=== PATIENT | male | born 1955 | race Hispanic/Latino ===

== ENCOUNTER 2017-10-27 12:54 | Emergency (ER) | payer BC, OTHER ==
[2017-10-27] MEDS ORDERED: DEXAMETHASONE SOD PHOSPHATE 10MG/ML 1ML VIAL ONE ×2 (13:40→13:50)
[2017-10-27] MEDS ORDERED: ACETAMINOPHEN EXTRA STRENGTH 500 MG TABLET ONE ×2 (13:41→13:51)
[2017-10-27] MEDS ORDERED: KETOROLAC TROMETHAMINE 30MG/ML ONE ×2 (13:41→13:51)
[2017-10-27] MEDS ORDERED: IPRATROPIUM/ALBUTEROL SULFATE 3 ML SOLUTION IH ONE (13:49)
[2017-10-27 13:57] LABS: RAPID GROUP A STREP NEGATIVE (NEGATIVE)
== END 2017-10-27 14:50 | disposition home or self-care (01) ==
LOC: EDH 12:54
DX: J20.9 Acute bronchitis, unspecified (principal); I10 Essential (primary) hypertension; Z88.8 Allergy status to other drugs, medicaments and biological substances; Z98.890 Other specified postprocedural states
CPT/HCPCS: 71046; 87804 ×2; 87880; 94640; 96372 ×2; 99285; J1100 ×2; J1885 ×2

== ENCOUNTER 2023-04-16 14:30 | Emergency (ER) | payer BC ==
[~2023-04-16] VITALS: Ht 172.7 cm; Wt 131.5 kg
[2023-04-16] MEDS ORDERED: LACTATED RINGERS 1000ML 1,000 ML IV ONE (16:30)
[2023-04-16 17:01] LABS: BASOPHILS # (AUTO) 0.07 K/uL (0.00-0.20); BASOPHILS % (AUTO) 0.8 % (0.0-5.0); EOSINOPHILS # (AUTO) 0.15 K/uL (0.00-0.70); EOSINOPHILS % (AUTO) 1.7 % (0.0-8.0); HEMATOCRIT 45.8 % (42-54); IMMATURE GRANULOCYTE ABSOLUTE 0.02 K/uL (0-1); LYMPHOCYTES # (AUTO) 2.6 K/uL (1.0-4.8); LYMPHOCYTES % (AUTO) 28.9 % (21.0-51.0); MEAN CORPUSCULAR HEMOGLOBIN 30.7 pg (27.0-33.0); MEAN CORPUSCULAR HGB CONC 34.1 g/dL (32.0-36.0); MEAN CORPUSCULAR VOLUME 90.2 fL (79-99); MONOCYTES # (AUTO) 0.9 K/uL (0.1-1.0); MONOCYTES % (AUTO) 9.6 % (3.0-13.0); NEUTROPHILS # (AUTO) 5.3 K/uL (1.8-7.7); NEUTROPHILS % (AUTO) 58.8 % (40.0-77.0); PLATELET COUNT (AUTO) 241 K/uL (130-400); RED BLOOD CELL COUNT(AUTO) 5.08 MIL/uL (4.50-6.20); RED CELL DISTRIBUTION WIDTH 12.2 % (11.0-15.5); WHITE BLOOD COUNT (AUTO) 9.1 K/uL (4.8-10.8)
[2023-04-16 17:14] LABS: APPEARANCE,URINE CLEAR (CLEAR); BILIRUBIN,URINE NEGATIVE (NEGATIVE); COLOR,URINE YELLOW (YELLOW); GLUCOSE, URINE (UA) 50 mg/dL (NEGATIVE); KETONES,URINE NEGATIVE (NEGATIVE); LEUKOCYTE ESTERASE ,URINE NEGATIVE Leu/uL (NEGATIVE); NITRATE,URINE NEGATIVE (NEGATIVE); OCCULT BLOOD,URINE MODERATE (NEGATIVE); PH,URINE 5.5 (5.0-8.0); PROTEIN,URINE 20 mg/dL (NEGATIVE); UROBILINOGEN,URINE 3 mg/dL (0.2-1.0)
[2023-04-16 17:18] LABS: ADD UA MICROSCOPIC YES
[2023-04-16 17:19] LABS: ALBUMIN 3.9 g/dL (3.5-5.0); BILIRUBIN,TOTAL 0.7 mg/dL (0.2-1.0); CREATININE 1.1 mg/dL (0.5-1.5); POTASSIUM 3.6 mmol/L (3.5-5.1); TOTAL PROTEIN, SERUM 7.4 g/dL (6.0-8.3)
[2023-04-16 17:23] LABS: BACTERIA,URINE RARE /HPF (None Seen); MUCUS,URINE FEW LPF (None Seen); SQUAMOUS EPITHELIAL CELL,UR RARE /HPF (0-2)
[2023-04-16] MEDS ORDERED: IOHEXOL 350 MG/ML 100ML INFUS..BTL IV ONE (19:46)
[2023-04-16] MEDS ORDERED: MORPHINE 2 MG SYG IVP ONE (21:00)
[2023-04-16] MEDS ORDERED: ONDANSETRON 4MG INJ IVP ONE (21:00)
[2023-04-16] MEDS ORDERED: CEFTRIAXONE 1G VIAL ONE (21:29)
[2023-04-16] MEDS ORDERED: CEFTRIAXONE 1G VIAL IVPB ONE (21:30)
[2023-04-16] MEDS ORDERED: CIPR-278 PO (21:42)
[2023-04-16] MEDS ORDERED: ONDA4TAB10 PO (21:42)
[2023-04-16 22:19] VITALS: BP 162/78; PULSE 68; RESP 18; O2SAT 98
== END 2023-04-16 22:30 | disposition home or self-care (01) ==
LOC: EDH 14:30
DX: N11.9 Chronic tubulo-interstitial nephritis, unspecified (principal); N13.30 Unspecified hydronephrosis; I10 Essential (primary) hypertension
CPT/HCPCS: 99284; 74177; 96374; 96375; 96361; 80053; 83690; 85025; 81001; 36415; J7120; J2270 ×2; J0696; J2405 ×2; Q9967

== ENCOUNTER 2024-08-13 12:56 | Emergency (ER) | payer BC, MEDICARE ==
[~2024-08-13] VITALS: Ht 175.3 cm; Wt 117.9 kg
[~2024-08-13 12:56] MED LIST: LATA2.5D14 OP
--- NOTE | 2024-08-13 13:16 | EKG ---
[facility] Test Date: 2024-08-13 Test Time: 13:10:57 Pat Name: KENJI FATIMA Department: ED Room: Gender: M [employer]: [facility] : 1955 Requested By: PIERO FLEMING Order Number: [id number] Reading MD: Alexandre Merritt Measurements Intervals [place] Rate: 97 P: 69 MD: 211 QRS: -20 QRSD: 106 T: 76 QT: 359 QTc: 456 Interpretive Statements Sinus rhythm Borderline prolonged MD interval Probable left ventricular hypertrophy Inferior infarct, old No previous ECG available for comparison Electronically Signed On 08-13-2024 20:50:49 BANK SE[employer] ACT OFFICER by Alexandre Merritt Please click the below link to view image of tracing.
--- NOTE | 2024-08-13 13:19 | ERN ---
General Chief Complaint: Fever Stated Complaint: FEVER Time Seen by MD: 13:04 History of Present Illness Initial Comments 69-year-old male who presents for fever. According to patient has had a cough for about two weeks with viral URI type symptoms. About 48 hours ago he began vomiting. He developed a fever today. He has had a decreased appetite. He has had a mild cough. No sore throat or earache. No diarrhea no abdominal discomfort. He does have a history of a left knee replacement that was complicated by a septic joint. Currently he does have some body aches and some left knee pain but he is ambulatory and able to bear weight and there is no erythema or irritation Medical history: Hypertension Surgical history: Left knee replacement by Dr. Arvizu PCP: Loli Bell Allergies: Coded Allergies: hydrochlorothiazide (Unverified Allergy, Severe, HIVES, 09/15/23) Home Meds Active Scripts Cefpodoxime Proxetil (Cefpodoxime Proxetil) 200 Mg Tablet, 200 MG PO BID for 10 Days, #20 TAB Prov:PIERO FLEMING DO 08/13/24 Reported Medications Latanoprost (Latanoprost) 0.005 % Drops, 2.5 ML OP HS, DROP 09/14/23 Past Medical History Past Medical History: Hypertension Past Surgical History: Other, None Surgical History Other: LEFT KNEE Social History Social History: ETOH ROS Dictation CONSTITUTIONAL: Fever HEAD/FACE: No signs of trauma. EENT: No eye pain, no blurred vision, no tearing, no double vision, no ear pain, no ear discharge, no nose pain, no nasal congestion, no throat pain, no throat swelling, no mouth pain. RESPIRATORY: Cough congestion CARDIOVASCULAR: No chest pain, no edema, no palpitations, no syncope. GASTROINTESTINAL/ABDOMINAL: No abdominal pain, no constipation, no diarrhea, no nausea, no vomiting. GENITOURINARY: No abnormal discharge, no dysuria, no frequent urination, no hematuria. No complaints of pain in the genitals. MUSCULOSKELETAL: No back pain, no gout, no joint pain, no joint swelling, no muscle pain, no muscle stiffness, no neck pain. INTEGUMENTARY: No change in color, no change in hair/nails, no dryness, no lesion, no lumps, no rash. NEUROLOGICAL/PSYCH: No anxiety, not depressed, no emotional problem, no headache, no numbness, no pre-existing deficit, no history of seizures, no tremors, no weakness. HEMATOLOGIC/LYMPHATIC: Not anemic, no history of blood clots, no apparent bleeding, no bruising, glands not swollen. All Systems Negative, Except as Noted. Physical Exam Physical Exam Dictation VITAL SIGNS: Reviewed. GENERAL APPEARANCE: Alert, oriented x3, no acute distress, obese. HEAD AND FACE: Non-traumatic. EYES: PERRL, pink conjunctivas, eyelid no trauma, anterior chamber clear. EARS: Pinnas intact and no signs of trauma or erythema. Ear canals clear and no discharge. TMs no erythema. NOSE: No discharge, no bleeding. OROPHARYNX: Mouth normal, teeth no caries, tongue pink. Pharynx clear, no erythema. Tonsils no exudates, no abscesses noted. Mucous membrane moist. NECK: Supple, non-tender, no thyromegaly, no masses, no JVD, no bruits. BREAST: Deferred. CHEST: No tenderness, no crepitus, no paradoxical movement, no retractions. LUNGS: Clear, well-ventilated, symmetric, no rales, no wheezing, no rhonchi, no stridor, good breath sounds bilaterally. HEART: Regular rate, regular rhythm, no murmur, no gallops. VASCULAR: No peripheral edema. ABDOMEN: Soft, positive bowel sounds, nondistended, no guarding, nontender, no rebound, no masses no hepatomegaly, no splenomegaly, no Thakur's sign, no hernias. RECTAL: Deferred. GENITAL: Deferred. NEUROLOGICAL: Normal speech, gross motor function intact, gross sensory function intact. MUSCULOSKELETAL: Neck nontender, full range of motion, back nontender, full range of motion. EXTREMITIES: Nontender, full range of motion. SKIN: Color pink, dry, no turgor, no rash, no lacerations, no abrasions, no contusions. LYMPHATICS: Deferred. Results Laboratory and Microbiology Lab and Micro Result Laboratory Tests Test 08/13/24 13:13 08/13/24 13:34 08/13/24 14:11 Influenza Type A Antigen Negative For Type A Influenza Type B Antigen Negative For Type B SARS-CoV-2 Antigen (Rapid) PRESUMPTIVE NEGATIVE White Blood Count 7.1 K/uL (4.8-10.8) Red Blood Count 3.92 MIL/uL (4.50-6.20) L Hemoglobin 10.8 g/dL (14.0-18.0) L Hematocrit 32.7 % (42-54) L Mean Corpuscular Volume 83.4 fL (79-99) Mean Corpuscular Hemoglobin 27.6 pg (27.0-33.0) Mean Corpuscular Hemoglobin Concent 33.0 g/dL (32.0-36.0) Red Cell Distribution Width 12.4 % (11.0-15.5) Platelet Count 236 K/uL (130-400) Mean Platelet Volume 10.2 fL (7.5-10.5) Immature Granulocyte % (Auto) 1.1 % (0-1) H Neutrophils (%) (Auto) 74.0 % (40.0-77.0) Lymphocytes (%) (Auto) 15.4 % (21.0-51.0) L Monocytes (%) (Auto) 7.7 % (3.0-13.0) Eosinophils (%) (Auto) 0.4 % (0.0-8.0) Basophils (%) (Auto) 1.4 % (0.0-5.0) Neutrophils # (Auto) 5.3 K/uL (1.8-7.7) Lymphocytes # (Auto) 1.1 K/uL (1.0-4.8) Monocytes # (Auto) 0.6 K/uL (0.1-1.0) Eosinophils # (Auto) 0.03 K/uL (0.00-0.70) Basophils # (Auto) 0.10 K/uL (0.00-0.20) Absolute Immature Granulocyte (auto 0.08 K/uL (0-1) Nucleated Red Blood Cells 0.0 % (0.0-0.19) Erythrocyte Sedimentation Rate 25 MM/HR (0-20) H Sodium Level 135 mmol/L (136-145) L Potassium Level 3.3 mmol/L (3.5-5.1) L Chloride Level 101 mmol/L (101-111) Carbon Dioxide Level 29 mmol/L (21-32) Blood Urea Nitrogen 17 mg/dL (7-18) Creatinine 1.1 mg/dL (0.5-1.3) Glomerular Filtration Rate Calc 72 mL/min (>90) Random Glucose 103 mg/dL (70-105) Lactic Acid Level 1.5 mmol/L (0.8-2.5) Total Calcium 8.3 mg/dL (8.5-10.1) L Total Bilirubin 1.3 mg/dL (0.2-1.0) H Direct Bilirubin 0.3 mg/dL (0.0-0.3) Aspartate Amino Transf (AST/SGOT) 15 U/L (10-37) Alanine Aminotransferase (ALT/SGPT) 17 U/L (12-78) Alkaline Phosphatase 77 U/L (50-136) Total Creatine Kinase 184 U/L (21-232) Troponin I High Sensitivity 24 ng/L (4-75) C-Reactive Protein, Quantitative 88.60 mg/L (0.5-3.0) H B-Type Natriuretic Peptide 453 pg/mL (0-100) H Total Protein 6.3 g/dL (6.0-8.3) Albumin 3.1 g/dL (3.5-5.0) L Urine Color YELLOW (YELLOW) Urine Appearance CLEAR (CLEAR) Urine pH 6.0 (5.0-8.0) Urine Specific [place] 1.033 (1.001-1.031) Urine Protein 70 mg/dL (NEGATIVE) H Urine Glucose (UA) NEGATIVE mg/dL (NEGATIVE) Urine Ketones NEGATIVE mg/dL (NEGATIVE) Urine Occult Blood +- (TRACE) (NEGATIVE) H Urine Nitrate NEGATIVE (NEGATIVE) Urine Bilirubin NEGATIVE mg/dL (NEGATIVE) Urine Urobilinogen 6 mg/dL (0.2-1.0) H Urine Leukocyte Esterase NEGATIVE [place]/uL Urine RBC 2-5 /HPF (0-1) H Urine WBC 2-5 /HPF (0-1) H Urine Bacteria None /HPF (None Seen) Urine Other Casts 1 /LPF (None Seen) MDM CC: Fever, cough, few episodes of vomiting. Historian: Patient Comorbidities: Hypertension Limitations by social determinates of health: none Ddx: sepsis, pna, flu, UTI, etc. VS: initially febril 101.1, otherwise stable. Improved in ED. Labs: no leukocytosis, mild normocytic anemia. BMP stable, liver function tests normal, CK normal, troponin normal. BNP 452, no clinical signs of fluid overload. CRP & ESR mild elevation. FLU & COVID neg. EKG: NSR, normal axis, good RWP, intervals WNL, no STEMI. Independently interpreted by me. CXR (independently interpreted by me): no cardiomegaly, possible mild L pleural effusion vs inflitrate vs atelectasis. Treatment in ED: IVF, tylenol PO, IV toradol, 1g rocephin. I considered and offered admission to the patient to treat community aquired pneumonia, but roberth reports feeling much better and does not want admission at this time. I discussed with the patient that the diagnosis is not clear, there is a fuzziness in the x-ray and he has a cough so we will treat as a community-acquired pneumonia, but there may be other sources of infection. We will treat with a broad-spectrum antibiotic, Rocephin and cefpodoxime outpatient. Patient is going to monitor for the next 24-48 hours and return to the emergency department if his symptoms do not improve or if he continues with fevers. ED Course Orders Procedure Category Date Status Time Cbc With Differential LAB 08/13/24 Complete 13:06 Blood Cult LELAND 08/13/24 In Process 13:06 Urinalysis Profile LAB 08/13/24 Complete 13:06 Culture Urine LELAND 08/13/24 In Process 13:06 0.9%Nacl 1000ml (Ns PHA 08/13/24 Complete 1000ml) 13:30 Creatine Kinase, Total LAB 08/13/24 Complete 13:06 Troponin I High LAB 08/13/24 Complete Sensitivity 13:06 Lactic Acid LAB 08/13/24 Complete 13:06 Basic Metabolic Panel LAB 08/13/24 Complete 13:06 Chest 1vw RAD 08/13/24 Resulted 13:06 Hepatic Function Panel LAB 08/13/24 Complete 13:06 Influenza Type A & B, LAB 08/13/24 Complete Rapid 13:06 Covid19 (Sars Antigen LAB 08/13/24 Complete Rapid) 13:06 Erythrocyte LAB 08/13/24 Complete Sedimentation Rate 13:09 12 Lead Ekg Tracing- EKG 08/13/24 Complete Technical 13:09 B-Type Natriuretic LAB 08/13/24 Complete Peptide 13:09 Acetaminophen 500mg PHA 08/13/24 Complete Tab (Tylenol 500mg T 13:30 Ketorolac PHA 08/13/24 Complete Tromethamine 15mg/Ml 13:30 Crp Quantitative LAB 08/13/24 Complete 13:34 Ceftriaxone 1g Vial PHA 08/13/24 Complete (Rocephine 1g Inj) 14:30 Current Medications Medications (Trade) Dose Ordered Sig/Archie Route PRN Reason Start Time Stop Time Status Last Admin Dose Admin Acetaminophen (TYLenol 500MG TAB) 1,000 mg ONCE ONCE PO 08/13/24 13:30 08/13/24 13:31 DC Ceftriaxone Sodium (ROCEphine 1G INJ) 1 gm ONCE IVPB 08/13/24 14:30 08/13/24 15:18 DC 08/13/24 15:03 Ketorolac Tromethamine (toRADol) 15 mg ONCE ONCE IV 08/13/24 13:30 08/13/24 13:31 DC 08/13/24 13:57 Sodium Chloride 3,537 ml @ 1,179 mls/hr ONCE ONCE IV 08/13/24 13:30 08/13/24 15:18 DC 08/13/24 13:56 Vital Signs Date Time Temp Pulse Resp B/P (MAP) Pulse Ox O2 Delivery O2 Flow Rate FiO2 08/13/24 14:30 98.8 87 16 138/52 98 Room Air* 0 21 08/13/24 13:43 101.1 95 16 150/62 98 Room Air* 0 21 08/13/24 13:02 101.1 98 18 161/65 98 DX & DISP Disposition: Discharge Departure Impression: Primary Impression: Community acquired pneumonia Additional Impression: Fever Condition: Stable Scripts Cefpodoxime Proxetil (Cefpodoxime Proxetil) 200 Mg Tablet 200 MG PO BID for 10 Days, #20 TAB Prov: PIERO FLEMING DO 08/13/24 Additional Instructions: As we discussed, you likely have a community-acquired pneumonia. This may be causing her fevers. You had a fever in the ER, but otherwise your vital signs are stable. Your chest x-ray shows a possible infiltrate on the left lower lobe but is othe rwise unremarkable. This is consistent with possible pneumonia. Your urinalysis is normal. Your other lab work (CBC,, basic metabolic panel, liver enzymes, troponin, BNP, CRP, flu and SARS swabs ) shows some mild inflammation but is otherwise unrema rkable. You received IV fluids, Tylenol, Toradol, and a dose of Rocephin which is an antibiotic, here in the emergency department. I have prescribed cefpodoxime which is an antibiotic. Take twice per day. You can take [id number] Tylenol ( 1000 mg) or ibuprofen ( 400 mg) as needed for fever or body aches. Be sure to drink plenty of liquids. If you do not want to eat whole foods, that is okay. As we discussed, if you continue with fever for longer than 48-72 hours, I recommend that you return to the emergency department for re-evaluation or follow up with your primary doctor. Referrals: LOLI PALMA DO (PCP) PIERO FLEMING DO Aug 13, 2024 13:19
[2024-08-13 13:43] LABS: BASOPHILS % (AUTO) 1.4 % (0.0-5.0); EOSINOPHILS # (AUTO) 0.03 K/uL (0.00-0.70); EOSINOPHILS % (AUTO) 0.4 % (0.0-8.0); HEMATOCRIT 32.7 % (42-54); IMMATURE GRANULOCYTE ABSOLUTE 0.08 K/uL (0-1); LYMPHOCYTES # (AUTO) 1.1 K/uL (1.0-4.8); LYMPHOCYTES % (AUTO) 15.4 % (21.0-51.0); MEAN CORPUSCULAR HEMOGLOBIN 27.6 pg (27.0-33.0); MEAN CORPUSCULAR VOLUME 83.4 fL (79-99); MONOCYTES # (AUTO) 0.6 K/uL (0.1-1.0); MONOCYTES % (AUTO) 7.7 % (3.0-13.0); NEUTROPHILS # (AUTO) 5.3 K/uL (1.8-7.7); PLATELET COUNT (AUTO) 236 K/uL (130-400); RED BLOOD CELL COUNT(AUTO) 3.92 MIL/uL (4.50-6.20); RED CELL DISTRIBUTION WIDTH 12.4 % (11.0-15.5); WHITE BLOOD COUNT (AUTO) 7.1 K/uL (4.8-10.8)
--- NOTE | 2024-08-13 13:51 | HMCIMG ---
PORTABLE CHEST RADIOGRAPH INDICATION: sepsis COMPARISON: 09/19/2023 FINDINGS: Heart size is normal. The pulmonary vascularity and jani appear normal. No abnormal pulmonary parenchymal opacity or consolidation identified. No significant pleural effusion noted. No pneumothorax detected. IMPRESSION: No radiographic evidence for any acute cardiopulmonary process.
[2024-08-13 13:53] LABS: CREATININE 1.1 mg/dL (0.5-1.3); POTASSIUM 3.3 mmol/L (3.5-5.1)
[2024-08-13] MEDS: [UNRECOGNIZED DRUG - OTHER] IV ONE (13:56)
[2024-08-13] MEDS: ketOROlac 15MG/ML VIAL (15MG/ML) IV ONE (13:57)
[2024-08-13 13:58] LABS: ALBUMIN 3.1 g/dL (3.5-5.0); BILIRUBIN,DIRECT 0.3 mg/dL (0.0-0.3); BILIRUBIN,TOTAL 1.3 mg/dL (0.2-1.0); TOTAL PROTEIN, SERUM 6.3 g/dL (6.0-8.3)
[2024-08-13 14:12] LABS: B-TYPE NATRIURETIC PEPTIDE 453 pg/mL (0-100)
[2024-08-13 14:20] LABS: COVID19 (SARS ANTIGEN RAPID) PRESUMPTIVE NEGATIVE (NEGATIVE)
[2024-08-13 14:21] LABS: INFLUENZA TYPE A Negative For Type A (NEGATIVE); INFLUENZA TYPE B Negative For Type B (NEGATIVE)
[2024-08-13 14:30] VITALS: BP 138/52; PULSE 87; RESP 16; TEMP 98.8; O2SAT 98
[2024-08-13 14:30] LABS: APPEARANCE,URINE CLEAR (CLEAR); BILIRUBIN,URINE NEGATIVE (NEGATIVE); COLOR,URINE YELLOW (YELLOW); GLUCOSE, URINE (UA) NEGATIVE (NEGATIVE); KETONES,URINE NEGATIVE (NEGATIVE); LEUKOCYTE ESTERASE ,URINE NEGATIVE Leu/uL (NEGATIVE); NITRATE,URINE NEGATIVE (NEGATIVE); PROTEIN,URINE 70 mg/dL (NEGATIVE); UROBILINOGEN,URINE 6 mg/dL (0.2-1.0)
[2024-08-13 14:33] LABS: ADD UA MICROSCOPIC YES
[2024-08-13] MEDS: acetaMINOPHEN 500 MG TABLET PO ONE (14:33)
[2024-08-13 14:41] LABS: MUCUS,URINE FEW LPF (None Seen); OTHER CASTS, URINE 1 /LPF (None Seen)
[2024-08-13 15:01] LABS: ERYTHROCYTE SEDIMENTATION RATE 25 MM/HR (0-20)
[2024-08-13] MEDS: cefTRIAXone 1G VIAL IVPB SCH (15:03)
[2024-08-13] MEDS ORDERED: CEFP200T14 PO (15:03)
--- NOTE | 2024-08-14 12:50 | NUR ---
LAB REPORT +BLOOD CULTURES GRAM POSITIVE COCCII CHAINS. REPORTED TO DR GOMEZ. STATES MEDICATION PT WAS DISCHARGED WITH WILL COVER BACTERIA.
== END 2024-08-13 15:18 | disposition home or self-care (01) ==
LOC: EDH 12:56
DX: J18.9 Pneumonia, unspecified organism (principal); I10 Essential (primary) hypertension; Z20.822 Contact with and (suspected) exposure to COVID-19; Z96.652 Presence of left artificial knee joint
CPT/HCPCS: 99284; 96374; 71045; 96375; 87426; 82550; 80076; 84484; 80048; 83880; 85025; 85651; 87040 ×2; 87086 ×2; 87186; 87804 ×2; 83605; 86140; 81001; 36415; 93005; J7030; J0696; J1885

== ENCOUNTER → 2025-03-16 | Outpatient (CLI) | payer BC ==
[~2025-03-16] MED LIST changes: +AMLO-257 PO
--- NOTE | 2025-03-16 13:10 | NUR ---
MBSS COMPLETED (OUTPATIENT). Recommend regular solids, mildly thick liquids, pills whole with liquids as tolerated. MAY WANT TO CONSIDER SCRAP CRANE OPERATOR CONSULT FOR APPROPRIATE NUTRITION PATIENT CAN TOLERATE WITH CURRENT CONDITION. DIAGNOSTIC FINDINGS: Pt presented with mild pharyngeal dysphagia likely due to late effects of chemo and radiation treatment post stomach surgery 2 months ago. As per patient, he has also lost taste in food which makes him gag. During exam, patient required frequent breaks and time to regurgitate into emesis bag. Dysphagia characterized by decreased tongue base retraction; delayed pharyngeal response trigger and decreased hyo-laryngeal elevation/excursion evidenced by premature spillage to valleculae with spillover to pyriform sinuses; tongue pumping; residue on base of tongue and occasionally on valleculae and posterior pharyngeal wall cleared with extra dry swallows; resulting in deep non-transient penetrations during the swallow with thin liquids with no cough response and mildly thick liquids with bigger cup sips; smaller sips effective in eliminating penetrations; no aspirations observed. MAY WANT TO CONSIDER SCRAP CRANE OPERATOR CONSULT FOR APPROPRIATE NUTRITION PATIENT CAN TOLERATE WITH CURRENT CONDITION. COMPENSATORY STRATEGIES: 1. sit upright during oral intake 2. small bites/sips 3. slow oral intake 4. extra dry swallows CABLE TESTERS HELPER reviewed results and recommendations with patient. CABLE TESTERS HELPER educated patient on risks and consequences of aspiration. Speech therapy not warranted at this time. All questions answered. Addendum: 03/16/[address]ANNE LORA Amended: Links added.
--- NOTE | 2025-03-16 16:46 | HMCIMG ---
MODIFIED BARIUM SWALLOW W CINE REASON: Malignant neoplasm of stomach, unspecified FINDINGS: Fluoroscopic assistance was provided to the speech pathologist while performing examination. For findings and dietary recommendations, refer to speech pathologist's report. FLUORO TIME: 2.8 minutes IMPRESSION: Modified barium swallow as described.
== END | disposition home or self-care (01) ==
LOC: RAH 12:39
PROVIDERS: ATTEND Internal Medicine
DX: C16.9 Malignant neoplasm of stomach, unspecified (principal)
CPT/HCPCS: 74230; 92611

== ENCOUNTER → 2025-03-31 | Outpatient (CLI) | payer BC ==
[~2025-03-31] MED LIST changes: -LATA2.5D14 OP; +LATA2.5D7 OP
--- NOTE | 2025-03-31 13:23 | HMCIMG ---
UPPER GI TRACT, WO KUB INDICATION: MALIGNANT NEOPLASM OF STOMACH patient is status post gastrectomy patient unable to eat solid food. FINDINGS: Patient was given 1 sip barium Examination was performed in standard fashion and shows the esophagus has normal caliber and peristalsis throughout. There is partial gastrectomy. 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 There is retained barium seen in the mid and distal esophagus. Barium flows freely through the pylorus and into normal-appearing duodenal bulb and sweep. The angle of Treitz lies to the left of midline. Gastroesophageal reflux reaching the mid esophagus is noted during the examination. FLUORO TIME: 1.0. 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
== END | disposition home or self-care (01) ==
LOC: RAH 07:25
PROVIDERS: ATTEND Surgery
DX: C16.9 Malignant neoplasm of stomach, unspecified (principal); K21.9 Gastro-esophageal reflux disease without esophagitis; K63.89 Other specified diseases of intestine; K31.89 Other diseases of stomach and duodenum; K22.2 Esophageal obstruction; Z90.3 Acquired absence of stomach [part of]
CPT/HCPCS: 74240

== ENCOUNTER 2025-04-08 07:51 | Day surgery (SDC) | payer BC ==
[~2025-04-08] VITALS: Ht 175.3 cm; Wt 73.9 kg
[2025-04-08] VITALS (11 sets, daily range): BP systolic 102–142; BP diastolic 6–78; PULSE 57–69; RESP 14–18; TEMP 97.1–97.8
[2025-04-08] MEDS: 0.9%NACL 1000ML 1,000 ML IV ONE (08:18)
[2025-04-08] MEDS ORDERED: LIDOCAINE PF 100MG/5ML (2%) SYRINGE 5ML ONE (09:34)
== END 2025-04-08 11:30 | disposition home or self-care (01) ==
LOC: DAH 07:51
PROVIDERS: ATTEND Surgery
DX: K22.2 Esophageal obstruction (principal); C16.9 Malignant neoplasm of stomach, unspecified; K91.89 Other postprocedural complications and disorders of digestive system; I10 Essential (primary) hypertension; Z88.8 Allergy status to other drugs, medicaments and biological substances; Z96.659 Presence of unspecified artificial knee joint
CPT/HCPCS: 43249; J7030; J2003; J2704 ×2; C1726 ×2; A4620; A4215 ×2; A4223; A4222; A4221; A4663; A4606; J3490

== ENCOUNTER 2025-04-22 07:08 | Day surgery (SDC) | payer BC ==
[~2025-04-22] VITALS: Ht 175.3 cm; Wt 73.9 kg
[2025-04-22] VITALS (10 sets, daily range): BP systolic 99–138; BP diastolic 35–54; PULSE 58–79; RESP 15–18; TEMP 97.5–98
[~2025-04-22 07:08] MED LIST changes: -LATA2.5D7 OP
[2025-04-22] MEDS: 0.9%NACL 1000ML 1,000 ML IV ONE (07:27)
== END 2025-04-22 09:12 | disposition home or self-care (01) ==
LOC: ENDO 07:08 → DAH 07:08 → ENDO 09:12
PROVIDERS: ATTEND Surgery
DX: K22.2 Esophageal obstruction (principal); C16.9 Malignant neoplasm of stomach, unspecified; I10 Essential (primary) hypertension; K91.89 Other postprocedural complications and disorders of digestive system; Z98.84 Bariatric surgery status; Z96.659 Presence of unspecified artificial knee joint; Z79.899 Other long term (current) drug therapy
CPT/HCPCS: 43249; J7030; J2704 ×2; A4620; A4215; C1726; J3490

== ENCOUNTER 2025-04-29 06:23 | Day surgery (SDC) | payer BC ==
[~2025-04-29] VITALS: Ht 175.3 cm; Wt 73.9 kg
[2025-04-29] VITALS (9 sets, daily range): BP systolic 98–136; BP diastolic 40–80; PULSE 53–63; RESP 14–20; TEMP 97.1–97.5
[2025-04-29] MEDS: 0.9%NACL 1000ML 1,000 ML IV ONE (07:23)
[2025-04-29] MEDS ORDERED: LIDOCAINE PF 100MG/5ML (2%) SYRINGE 5ML ONE (07:46)
[2025-04-29] MEDS ORDERED: GLYCOPYRROLATE 0.2 MG/ML 5 ML VIAL ONE (07:47)
[2025-04-29] MEDS ORDERED: FAMOTIDINE 20MG VIAL IV ONE (07:49)
--- NOTE | 2025-04-29 11:39 | NUR ---
BOTH PT AND GIVEN VERBAL AND WRITTEN DISCHARGE INSTRUCTIONS IV REMOVED SITE ASYMPTOMATIC. PT TAKEN OUT VIA WHEELCHAIR DRIVING.
== END 2025-04-29 11:44 | disposition home or self-care (01) ==
LOC: ENDO 06:23 → DAH 06:23 → ENDO 11:44
PROVIDERS: ATTEND Surgery
DX: R13.14 Dysphagia, pharyngoesophageal phase (principal); K22.2 Esophageal obstruction; C16.9 Malignant neoplasm of stomach, unspecified; I10 Essential (primary) hypertension; Z88.8 Allergy status to other drugs, medicaments and biological substances; Z79.899 Other long term (current) drug therapy; Z98.890 Other specified postprocedural states
CPT/HCPCS: 43247; 88300; J3490 ×2; J7030; J2003; J2704 ×2; A4620; A4215 ×2; A4223; A4222; A4221; A4663; A4606

== ENCOUNTER 2025-06-17 06:48 | Day surgery (SDC) | payer BC ==
[~2025-06-17] VITALS: Ht 175.3 cm; Wt 70.3 kg
[2025-06-17] VITALS (11 sets, daily range): BP systolic 102–124; BP diastolic 46–55; PULSE 57–80; RESP 15–18; TEMP 97.1–97.9
[2025-06-17] MEDS: 0.9%NACL 1000ML 1,000 ML IV ONE (07:51)
[2025-06-17] MEDS ORDERED: FURO20TA4 PO (07:57)
[2025-06-17] MEDS ORDERED: SACU1TAB PO (07:57)
[2025-06-17] MEDS ORDERED: LIDOCAINE PF 100MG/5ML (2%) SYRINGE 5ML ONE (07:58)
== END 2025-06-17 09:49 | disposition home or self-care (01) ==
LOC: DAH 06:48
PROVIDERS: ATTEND Surgery
DX: C16.9 Malignant neoplasm of stomach, unspecified (principal); K22.2 Esophageal obstruction; K91.89 Other postprocedural complications and disorders of digestive system; I10 Essential (primary) hypertension; Z97.8 Presence of other specified devices; Z88.8 Allergy status to other drugs, medicaments and biological substances; Z98.84 Bariatric surgery status; Z79.899 Other long term (current) drug therapy
CPT/HCPCS: 43249; 43247; J7030; J2003; J2704 ×2; C1726; A4215; A4223; A4222; A4221; A4663; A4606; J3490